=== PATIENT | male | born 1990 | race Caucasian/White ===

== ENCOUNTER 2018-05-10 04:25 | Emergency (ER) | payer BC ==
[~2018-05-10] VITALS: Ht 180.3 cm; Wt 72.6 kg
[2018-05-10 04:28] VITALS: BP 106/71
--- NOTE | 2018-05-10 04:32 | NUR ---
PT TO ED BIB [facility] FOR PRE BOOK. DENIES PAIN, LOC, OR AIRBAG DEPLOYMENT. PT IN BED, PENDING MD SANZ. PMH--DENIES RX--DENIES
[2018-05-10 04:47] VITALS: BP 106/71
--- NOTE | 2018-05-10 04:47 | NUR ---
Patient discharged with v/s stable. Written and verbal after care instructions given and explained. Patient verbalized understanding. Ambulatory with in custody. All questions addressed prior to discharge. Advised to follow up with PMD.
--- NOTE | 2018-05-10 04:48 | NUR ---
[facility]IENT [facility] [place] [employer]. PATIENT EXAMINED BY DR. HOLBROOK. PATIENT MEDICALLY CLEARED AND RELEASED IN CUSTODY IN STABLE CONDITION. ORIGINAL PRE-BOOK FORM GIVEN TO OFFICER FIDE.
== END 2018-05-10 04:47 ==
LOC: MED 04:25
DX: Z02.89 Encounter for other administrative examinations (principal); V47.9XXA Unspecified car occupant injured in collision with fixed or stationary object in traffic accident, initial encounter; Y93.89 Activity, other specified; Y92.89 Other specified places as the place of occurrence of the external cause; Y99.8 Other external cause status
CPT/HCPCS: 99283